=== PATIENT | female | born 1995 | race Caucasian/White ===

== ENCOUNTER 2017-01-19 07:53 | Emergency (ER) | payer BC ==
[2017-01-19 08:13] VITALS: BP 133/87
--- NOTE | 2017-01-19 08:50 | RAD ---
INDICATION: Right shoulder pain COMPARISON: None TECHNIQUE: Routine frontal, Y and axial views were obtained. FINDINGS: The bony structures, joint spaces, and soft tissues are normal for age. IMPRESSION: NEGATIVE EXAMINATION.
--- NOTE | 2017-01-19 09:02 | UC ---
Shoulder Pain HPI - HPI Summary HPI Summary: right shoulder pain x 2 days no known injury , ? pain from repetitive motion at work no swelling, no bruising , - History of Current Complaint Chief Complaint: UCUpperExtremity Stated Complaint: RIGHT SHOULDER PAIN/EAR PAIN Time Seen by Provider: 01/19/17 08:16 Hx Obtained From: Patient Hx Last Menstrual Period: 01/18/17 Onset/Duration: Gradual Onset, Lasting Days - 2, Still Present Timing: Constant Severity Initially: Moderate Severity Currently: Moderate Character: Aching Aggravating Factor(s): Movement, Lifting, Flexion, Extension Alleviating Factor(s): Rest, Ice Associated Signs And Symptoms: Positive: Weakness - right shoulder. Negative: Swelling, Redness, Bruising, Fever - Allergies/Home Medications Allergies/Adverse Reactions: Allergies Allergy/AdvReac Type Severity Reaction Status Date / Time No Known Allergies Allergy Verified 01/19/17 08:13 Home Medications: Home Medications Ibuprofen [Advil] 200 mg PO PRN 01/19/17 [History] PMH/Surg Hx/FS Hx/Imm Hx Previously Healthy: Yes - Surgical History Surgical History: None - Family History Known Family History: Negative: Diabetes - Social History Alcohol Use: None Substance Use Type: None Smoking Status (MU): Never Smoked Tobacco - Immunization History Vaccination Up to Date: Yes Review of Systems Constitutional: Negative Skin: Negative Eyes: Negative ENT: Negative Respiratory: Negative All Other Systems Reviewed And Are Negative: Yes Physical Exam Triage Information Reviewed: Yes Appearance: Well-Appearing, No Pain Distress, Well-Nourished Vital Signs: Initial Vital Signs Temp 99.5 F 01/19/17 08:05 Pulse 75 01/19/17 08:05 Resp 14 01/19/17 08:05 BP 133/87 01/19/17 08:05 Pulse Ox 97 01/19/17 08:05 Vital Signs Reviewed: Yes Eyes: Positive: Conjunctiva Clear ENT: Positive: Normal ENT inspection, Hearing grossly normal, Pharynx normal Neck: Positive: Supple, Nontender, No Lymphadenopathy Respiratory: Positive: Chest non-tender, Lungs clear, Normal breath sounds Cardiovascular: Positive: RRR, No Murmur, Pulses Normal Abdominal Exam: Normal Musculoskeletal: Positive: Other: - right shoulder : no swelling, no erythema, mild diffuse tenderness, pain with flexion and extension of the shoulder, with limited ROM on flexion and abduction , limited strength Shoulder Course/Dx - Differential Dx/Diagnosis Provider Diagnoses: right shoulder tendonitis Discharge - Discharge Plan Condition: Stable Disposition: HOME Prescriptions: Naproxen 500 mg PO BID #20 tab Patient Education Materials: Rotator Cuff Tendinitis (ED) Forms: *Work Release Referrals: VINICIUS Weems [Primary Care Provider] - 7 Days
== END 2017-01-19 09:01 | disposition home or self-care (01) ==
LOC: UCCORT 07:53
DX: M75.91 Shoulder lesion, unspecified, right shoulder (principal)
CPT/HCPCS: 99202; G0463

== ENCOUNTER 2017-02-12 15:41 | Emergency (ER) | payer BC ==
--- NOTE | 2017-02-12 15:54 | UC ---
Eye Complaint HPI - HPI Summary HPI Summary: 21 year old female presents with complains of visual changes right worse than left. She indicates that she is seeing floaters. I will send her to Robi Meade M.D at 9 am 02/13/17. Dr Gomes was also called and unable to see the patient. - History of Current Complaint Chief Complaint: UCGeneralIllness Stated Complaint: VISUAL DISTURBANCES Time Seen by Provider: 02/12/17 15:53 Hx Last Menstrual Period: 01/18/17 - Allergies/Home Medications Allergies/Adverse Reactions: Allergies Allergy/AdvReac Type Severity Reaction Status Date / Time No Known Allergies Allergy Verified 02/12/17 15:44 Home Medications: Home Medications Desogestrel & Ethinyl Estradio [Juleber 0.15-30 mg-Mcg] 1 tab PO QAM 02/12/17 [ History Confirmed 02/12/17] PMH/Surg Hx/FS Hx/Imm Hx - Surgical History Surgical History: None - Family History Known Family History: Negative: Diabetes - Social History Alcohol Use: None Substance Use Type: None Smoking Status (MU): Never Smoked Tobacco - Immunization History Vaccination Up to Date: Yes Review of Systems Constitutional: Negative Skin: Negative Eyes: Eye Redness ENT: Negative Respiratory: Negative Cardiovascular: Negative Gastrointestinal: Negative Genitourinary: Negative Motor: Negative Neurovascular: Negative Musculoskeletal: Negative Neurological: Negative Psychological: Negative All Other Systems Reviewed And Are Negative: Yes Physical Exam Triage Information Reviewed: Yes Eyes: Positive: Conjunctiva Inflamed ENT Exam: Normal Dental Exam: Normal Neck exam: Normal Neck: Positive: 1 Respiratory Exam: Normal Cardiovascular Exam: Normal Abdominal Exam: Normal Musculoskeletal Exam: Normal Neurological Exam: Normal Psychological Exam: Normal Skin Exam: Normal Eye Complaint Course/Dx - Differential Dx/Diagnosis Provider Diagnoses: floaters right eye. visual changes both eyes Discharge - Discharge Plan Condition: Stable Disposition: HOME Patient Education Materials: Blurred Vision (ED) Referrals: Robi Meade MD [Medical Doctor] - Marge Adkins MD [Primary Care Provider] - If Needed
[2017-02-12 15:55] VITALS: BP 124/70
== END 2017-02-12 17:04 | disposition home or self-care (01) ==
LOC: UCCORT 15:41
DX: H43.391 Other vitreous opacities, right eye (principal); H53.9 Unspecified visual disturbance
CPT/HCPCS: 99211; G0463